=== PATIENT | male | born 1995 | race Caucasian/White ===

== ENCOUNTER 2016-12-14 18:28 | Emergency (ER) | payer BC ==
[~2016-12-14] VITALS: Ht 172.7 cm; Wt 81.6 kg
--- NOTE | 2016-12-14 18:55 | NUR ---
PT IS IN ROOM #2B. DR GEORGE EVALUATED THE PT. SECURITY AT THE BEDSIDE TO MONITOR THE PT.
--- NOTE | 2016-12-14 19:00 | NUR ---
CARE ENDORSED FROM DAYSHIFT NURSE, PT IS AWAKE, ALERT, ORIENTED X 4, NO RESP DISTRESS NOTED OR REPORTED UPON ASSESSMENT...SECURITY AT BEDSIDE... WILL CONTINUE TO MONITOR FOR COMFORT, PAIN, AND SAFETY....
[2016-12-14] MEDS ORDERED: LORAZEPAM 0.5 MG TABLET PO ONE (19:15)
[2016-12-14] MEDS ORDERED: LORAZEPAM 1 MG TABLET ONE (19:28)
--- NOTE | 2016-12-14 20:05 | NUR ---
[facility] CONTACTED FOR PT, CONTACTED CARLOS, STATES HE WILL BE HERE TO ASSESS PT IN 45 MINS...
--- NOTE | 2016-12-14 20:15 | NUR ---
Called Frank Green from PET team. ETA 45mins
--- NOTE | 2016-12-14 21:15 | NUR ---
PT EVALUATED BY [facility], PT NOT BEING PLACED ON HOLD, [facility] CONTACTED [facility], ETIOLOGY TEACHER CONTACTED TO RADIOLOGY PHYSICIAN ASSISTANT PT...
--- NOTE | 2016-12-14 21:45 | NUR ---
Patient discharged to home in stable conditon. Written and verbal after care instructions given. 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
[2016-12-14 21:50] VITALS: BP 139/81
== END 2016-12-14 21:53 | disposition home or self-care (01) ==
LOC: ER 18:30
DX: F11.10 Opioid abuse, uncomplicated (principal); F32.9 Major depressive disorder, single episode, unspecified; R07.9 Chest pain, unspecified; F41.9 Anxiety disorder, unspecified
CPT/HCPCS: 71010; 93005; 99284; A4663